=== PATIENT | male | born 1975 | race Caucasian/White ===

== ENCOUNTER 2016-05-07 08:48 | Observation (INO) ==
[2016-05-07 09:44] LABS: MANUAL DIFF NEEDED? NO
[2016-05-07 09:45] LABS: BASO% 0.7 % (0.0-0.8); EOS# 0.34 X1000 (0.0-0.7); EOS% 4.2 % (0.0-10.0); HEMATOCRIT 46.6 % (42.0-52.0); HEMOGLOBIN 15.8 g/dL (14.0-18.0); IMM GRAN# 0.04 X1000 (0.0-0.04); IMM GRAN% 0.5 % (0.0-0.5); LYMPH# 0.96 X1000 (1.2-3.4); LYMPH% 11.8 % (20.5-51.1); MCH 30.8 PG (27-31); MCHC 33.9 g/dL (33-37); MCV 90.8 FL (81-99); MONO# 0.76 X1000 (0.11-0.59); MONO% 9.4 % (1.7-9.3); NEUT% 73.4 % (42.2-75.2); PLT 180 X1000 (130-400); RBC 5.13 XMIL (4.7-6.1)
[2016-05-07] MEDS ORDERED: NS 1,000 ML IV ONE (09:58)
[2016-05-07] MEDS ORDERED: VANCOMYCIN 1 GM/NS 250 ML IV ONE ×2 (09:59→15:20)
[2016-05-07] MEDS ORDERED: MORPHINE IV ONE (09:59)
[2016-05-07] MEDS ORDERED: ZOFRAN IV ONE (09:59)
[2016-05-07 10:11] LABS: AGAP 15; ALBUMIN 3.9 g/dL (3.5-5.0); ALKALINE PHOSPHATASE 167 U/L (32-122); BUN 8 mg/dL (8-22); CHLORIDE 101 mmol/L (98-107); COSMO 286; GOT 23 U/L (10-34); GPT 55 U/L (10-44); POTASSIUM 4.1 mmol/L (3.5-5.1); SODIUM 138 mmol/L (136-145); TCO2 22 mmol/L (25-35); TOTAL PROTEIN 7.4 g/dL (6.3-8.3)
--- NOTE | 2016-05-07 10:18 | PROVIDER DOCUMENTATION ---
HPI-General Adult - General Chief Complaint: Return/Recheck Stated Complaint: RETURN/RECHECK Time Seen by Provider: 05/07/16 09:51 Source: patient Allergies/Adverse Reactions: Patient Allergies Allergy/AdvReac Type Severity Reaction Status Date / Time No Known Allergies Allergy Verified 05/05/16 15:52 Home Medications: Home Medication List Medication Instructions Recorded Confirmed Last Taken Type Clindamycin [Cleocin] 150 mg PO Q6HR #30 capsule 05/05/16 Unknown Rx Doxycycline 100 mg PO BID 05/05/16 05/05/16 Unknown History Sulfamethoxazole/Trimethoprim 1 each PO BID #14 tablet 05/05/16 Unknown Rx [Bactrim Ds Tablet] - History of Present Illness -Gen Adult Nature of Presenting Problems: Pt. is 40 yom that presents with c/o wound to left inner arm. Pt. was seen two days ago and treated with IV antibiotics and sent home with antibiotics to continue. Pt. reports the wound is getting larger and more painful. Pt. states he has been taking all of his medications. Location of Pain/Injury: reports: upper extremity (Left upper arm.). denies: head, face, mouth, neck, chest, hand(s), abdomen, back, pelvis, genitalia, lower extremity, feet, upper body, lower body, generalized Pain Radiation: reports: no radiation Quality of Pain: reports: aching. denies: burning, cramping, dull, fullness, indigestion, pressure, sharp, stabbing, tearing, throbbing, tightness Severity: reports: moderate. denies: mild, severe Onset/Duration: reports: gradual, 4 days ago Timing: reports: still present. denies: improving, gone now, resolved prior to arrival, intermittent, constant, changing over time, getting worse Context/Activities at Onset: reports: none. denies: recent emotional stress, recent physical stress, recent trauma history, possible bad food, cold exposure , out of country travel Modifying Factors: improves with: nothing Associated Symptoms: reports: arm pain. denies: anxiety, back/neck pain, chest pain, constipation, cough, diaphoresis, diarrhea, dizziness, EENT symptoms, fatigue, fever/chills, genitourinary problems, headaches, heartburn, joint pain , loss of appetite, malaise, muscle aches, sinus congestion/drainage, nausea, rash, seizure, shortness of breath, sensory/motor loss, pain with inspiration, swelling/mass in abdomen, syncope, vomiting, weakness, trouble walking Similar Symptoms Previously?: Yes Recently seen or treated by another doctor?: Yes Review of Systems - Adult - REVIEW OF SYSTEMS - ADULT Constitutional: reports: see HPI, fever. denies: chills, fatique, night sweats Eyes: reports: see HPI. denies: discharge, blurred vision, eye pain Ears, Nose, Mouth & Throat: reports: see HPI. denies: ear pain, hearing loss, sinus problem, nose pain, loose teeth, mouth/dental pain, throat pain, throat swelling Cardiovascular: reports: see HPI. denies: chest pain, heart murmur, orthopnea, syncope Respiratory: reports: see HPI. denies: cough, dyspnea on exertion, pleurisy, shortness of breath, wheezing Gastrointestinal: reports: see HPI. denies: abdominal pain, hematemesis, constipation, diarrhea, nausea, vomiting Genitourinary: reports: see HPI. denies: dysuria, discharge, flank pain, hematuria, incontinence, urgency Musculoskeletal: reports: see HPI. denies: bone pain, back pain, joint pain, muscle aches, neck pain Integumentary: reports: see HPI, skin sores/ulcer (6 inch diameter cellulitis to left upper arm with white center that appears to be necrosing.). denies: hair loss, itching, nail changes Neurological: reports: see HPI. denies: dizziness/vertigo, headache/migraines, numbness, seizure, tremors Psychiatric: reports: see HPI. denies: anxiety, depression, emotional problems , insomnia, panic attacks, suicidal thoughts Past History - Adult - PAST MEDICAL HISTORY-ADULT Review of Records: reports: Old Records Reviewed, Nursing Assessment Review, Medications Reviewed, Social history reviewed & non-contributory. Cardiovascular: reports: HTN Endocrine/Immune: reports: Diabetes - PRIOR SURGERIES/PROCEDURES Surgical/Procedure History: reports: none - IMMUNIZATION STATUS Childhood Immunizations: See Nurse Assessment Flu Vaccine: See Nurse Assessment - FAMILY HISTORY Family History: reviewed, not pertinent - SOCIAL HISTORY Smoking: cigarettes, greater than 1 pack/day Provider spent 3-5 mins advising pt. on dangers of tobacco.: Discussed the need to stop smoking. Physical Exam-General - PHYSICAL EXAM-ADULT Initial Vital Signs Reviewed: Yes - CONSTITUTIONAL General Appearance: alert, moderate distress. negative: anxious, lethargic, slow to respond, obtunded, combative - EYES Eyes: PERRL/EOMI, pink conjunctivae. negative: conjuctival exudate, photophobia , scleral icterus, subconjunctival hemorrhage - HEAD, EARS, NOSE, MOUTH & THROAT HENMT: normocephalic/atraumatic, moist mucous membranes. negative: angioedema, frontal tenderness, maxillary tenderness - NECK Neck: non-tender, full range of motion, supple, normal inspection. negative: lymphadenopathy, trachial deviation, thyromegaly - RESPIRATORY Respiratory: lungs clear, normal breath sounds. negative: crackles, rales, rhonchi, stridor, wheezing - CARDIOVASCULAR Cardiovascular: normal peripheral pulses, regular rate, rhythm, no edema, no JVD , no murmur. negative: extra beats, friction rub, irregularly irregular - CHEST (BREASTS) Chest/Breast: deferred - GASTROINTESTINAL (ABDOMEN) Abdominal Exam: normal bowel sounds, non tender, soft. negative: distended, guarding, rigid, rebound, tenderness, hernia, mass - GENITOURINARY Male Genitalia: deferred Rectal Exam: deferred Hemoccult Exam: deferred - LYMPHATIC Lymphatic: no adenopathy. negative: axilla node tender, cervical node tenderness - MUSCULOSKELETAL Back Exam: normal inspection, no CVA tenderness, no vertebral tenderness. negative: ecchymosis, swelling, vertebral tenderness Extremity: normal range of motion, non-tender, normal gait, normal inspection, erythema (Left upper extremity), inflammation (Left upper extremity), tenderness (Left upper extremity). negative: deformity, swelling Peripheral Pulses: radial (R): 2+, radial (L): 2+ - SKIN Integumentary: normal color, normal turgor, warm/dry, erythema (Left upper extremity), swelling (Left upper extremity), tenderness (Left upper extremity). negative: cyanosis, diaphoresis, ecchymosis, jaundice, mottled, pallor, petechiae, purpura, rash - NEUROLOGIC Neurologic: grossly normal, no motor/sensory deficits. negative: aphasia, facial droop, focal weakness, motor weakness, sensory deficit - PSYCHIATRIC Psych/Mental Status: normal mood/affect, normal thought content, normal thought process, oriented x 3. negative: anxious, paranoid, tearful Progress - PLAN OF CARE/RESULTS Progress/Plan/Lab Results: Discussed results and plan of care with patient. Patient agrees with plan and verbalizes understanding. Vital Signs Temp Pulse Resp BP Pulse Ox 05/07/16 09:05 98.8 F 80 18 159/97 100 No Known Allergies Allergy (Verified 05/05/16 15:52) Clindamycin [Cleocin] 150 mg PO Q6HR #30 capsule 05/05/16 Doxycycline 100 mg PO BID 05/05/16 Sulfamethoxazole/Trimethoprim [Bactrim Ds Tablet] 1 each PO BID #14 tablet 05/05 Laboratory 05/07/16 05/07/16 05/07/16 09:25 09:25 09:25 WBC 8.12 RBC 5.13 Hgb 15.8 Hct 46.6 MCV 90.8 MCH 30.8 MCHC 33.9 RDW Std Deviation 13.1 Plt Count 180 MPV 10.0 Immature Gran % (Auto) 0.5 Neut % (Auto) 73.4 Lymph % (Auto) 11.8 L [place] % (Auto) 9.4 H Eos % (Auto) 4.2 Baso % (Auto) 0.7 Immature Gran # (Auto) 0.04 Neut # (Auto) 5.96 Lymph # (Auto) 0.96 L [place] # (Auto) 0.76 H Eos # (Auto) 0.34 Baso # (Auto) 0.06 Sodium 138 Potassium 4.1 Chloride 101 Carbon Dioxide 22 L Anion Gap 15 BUN 8 Creatinine 0.8 Estimated GFR/1.73 m2 > 60 BUN/Creatinine Ratio 10 Glucose 316 H POC Glucose Calculated Osmolality 286 Calcium 9.0 Total Bilirubin 0.30 AST 23 ALT 55 H Alkaline Phosphatase 167 H Total Protein 7.4 Albumin 3.9 Globulin 4.0 Albumin/Globulin Ratio 1.0 Plasma Lactate 1.7 05/07/16 09:14 WBC RBC Hgb Hct MCV MCH MCHC RDW Std Deviation Plt Count MPV Immature Gran % (Auto) Neut % (Auto) Lymph % (Auto) [place] % (Auto) Eos % (Auto) Baso % (Auto) Immature Gran # (Auto) Neut # (Auto) Lymph # (Auto) [place] # (Auto) Eos # (Auto) Baso # (Auto) Sodium Potassium Chloride Carbon Dioxide Anion Gap BUN Creatinine Estimated GFR/1.73 m2 BUN/Creatinine Ratio Glucose POC Glucose 281 H Calculated Osmolality Calcium Total Bilirubin AST ALT Alkaline Phosphatase Total Protein Albumin Globulin Albumin/Globulin Ratio Plasma Lactate Orders Category Date Time Status Saline Loc NOW Care 05/07/16 09:58 Active US NON VASC EXTREMITY LIMITED [US] Stat Exams 05/07/16 09:59 Completed CBC WITH DIFF [HEME] Stat Lab 05/07/16 09:25 Completed COMPREHENSIVE METABOLIC PANEL [CHEM] Stat Lab 05/07/16 09:25 Completed LACTATE, PLASMA [CHEM] Stat Lab 05/07/16 09:25 Completed 0.9% Sodium Chloride Inj [Ns] 1,000 ml Med 05/07/16 09:58 Active IV 125 mls/hr Morphine Med 05/07/16 09:59 Discontinued 4 mg IV NOW ONE Ondansetron [Zofran] Med 05/07/16 09:59 Discontinued 4 mg IV NOW ONE Vancomycin 1 gm/Ns 250 ml Med 05/07/16 09:59 Discontinued IV NOW Laboratory Tests 05/07/16 05/07/16 05/07/16 09:14 09:25 09:25 WBC RBC Hgb Hct MCV MCH MCHC RDW Std Deviation Plt Count MPV Immature Gran % (Auto) Neut % (Auto) Lymph % (Auto) [place] % (Auto) Eos % (Auto) Baso % (Auto) Immature Gran # (Auto) Neut # (Auto) Lymph # (Auto) [place] # (Auto) Eos # (Auto) Baso # (Auto) Sodium 138 Potassium 4.1 Chloride 101 Carbon Dioxide 22 L Anion Gap 15 BUN 8 Creatinine 0.8 Estimated GFR/1.73 m2 > 60 BUN/Creatinine Ratio 10 Glucose 316 H POC Glucose 281 H Calculated Osmolality 286 Calcium 9.0 Total Bilirubin 0.30 AST 23 ALT 55 H Alkaline Phosphatase 167 H Total Protein 7.4 Albumin 3.9 Globulin 4.0 Albumin/Globulin Ratio 1.0 Plasma Lactate 1.7 05/07/16 09:25 WBC 8.12 RBC 5.13 Hgb 15.8 Hct 46.6 MCV 90.8 MCH 30.8 MCHC 33.9 RDW Std Deviation 13.1 Plt Count 180 MPV 10.0 Immature Gran % (Auto) 0.5 Neut % (Auto) 73.4 Lymph % (Auto) 11.8 L [place] % (Auto) 9.4 H Eos % (Auto) 4.2 Baso % (Auto) 0.7 Immature Gran # (Auto) 0.04 Neut # (Auto) 5.96 Lymph # (Auto) 0.96 L [place] # (Auto) 0.76 H Eos # (Auto) 0.34 Baso # (Auto) 0.06 Sodium Potassium Chloride Carbon Dioxide Anion Gap BUN Creatinine Estimated GFR/1.73 m2 BUN/Creatinine Ratio Glucose POC Glucose Calculated Osmolality Calcium Total Bilirubin AST ALT Alkaline Phosphatase Total Protein Albumin Globulin Albumin/Globulin Ratio Plasma Lactate - ULTRASOUND (By Radiology) 1 US Study: Upper Ext US Results: No abscess ([place]) - CONSULTS/PCP/HOSPITALIST Notification #1 *Consult/PCP/Hospitalist*: Dr. Downs Time Discussed: 13:25 Reason/Comments: Admission Consult Disposition: Admit Departure - Departure Time of Disposition Order: 13:25 DIAGNOSIS: Cellulitis Qualifiers: Site of cellulitis: extremity Site of cellulitis of extremity: upper extremity Laterality: left Qualified Code(s): L03.114 - Cellulitis of left upper limb Disposition: ADMITTED INPATIENT 09 Certified Medical Emergency: Emergent Condition: Stable Attestation - Physician/ HEIDI Attestation Patient care was provided by Advanced Practice Provider:: Yes Advanced Practice Provider:: Ana Mora Advanced Practice Provider documentation review:: The Mid-level provider documentation, treatment plan and medical decision making was reviewed by the physician who agrees with all treatment and medical decision making by the MLP.
--- NOTE | 2016-05-07 12:58 | Diag Imaging Result Document ---
PROCEDURE NAME: US NON VASC EXTREMITY LIMITED - 05/07/2016 LEFT ARM EXTREMITY NONVASCULAR ULTRASOUND: INDICATION: Abscess. Possible spine bite. FINDINGS: Sonographic evaluation of the visible abnormality within the left upper extremity shows no cyst or solid mass. No suspicious findings are demonstrated. IMPRESSION: No sonographic abnormality left upper arm.
[2016-05-07] MEDS ORDERED: ZOFRAN IV PRN (13:26)
[2016-05-07] MEDS ORDERED: TYLENOL PO PRN (13:26)
[2016-05-07] MEDS ORDERED: VANCOMYCIN IV PER PHARMACY MISC SCH (13:30)
[2016-05-07] MEDS: ROCEPHIN 1 GM/NS 50 ML IV SCH (13:55)
[2016-05-07] MEDS ORDERED: MORPHINE IV PRN (19:11)
[2016-05-07] MEDS ORDERED: HUMALOG DOSE (PARKWAY) ONE (19:36)
[2016-05-07] MEDS: NORCO-10 PO PRN (19:56)
[2016-05-07] MEDS: HUMALOG SUBQ SCH (21:28)
[2016-05-08] MEDS: VANCOMYCIN 2,000 MG in NS 500 ML IV SCH ×2 (02:00→14:39)
[2016-05-08] MEDS ORDERED: VANCOMYCIN 2,000 MG in NS 500 ML IV SCH (02:00)
[2016-05-08] MEDS: NORCO-10 PO PRN ×4 (04:15→20:05)
[2016-05-08] MEDS ORDERED: HUMALOG DOSE (PARKWAY) ONE ×2 (06:09→19:59)
[2016-05-08] MEDS: HUMALOG SUBQ SCH ×4 (07:00→20:05)
--- NOTE | 2016-05-08 10:06 | HISTORY AND PHYSICAL ---
CHIEF COMPLAINT: Cellulitis history. HISTORY OF PRESENT ILLNESS: Patient is a 40-year-old male who notes about a week ago, he started having redness and swelling under his left arm near the axilla. The swelling continued to worsen. So, he presented to his primary care physician and was placed on antibiotics. Unfortunately, he continued to worsen. He presented to the emergency department and was given IV vancomycin x1 and his antibiotics were changed. This, however, did not clear up his arm and he continued to worsen. Now, he is having increased redness that is outside of the marked area from 2 days ago, increased pain and swelling. Denies any pus draining. Denies any fevers, chills. ALLERGIES: No known drug allergies. MEDICATIONS: He is on no chronic active medications; however, he was just recently on Bactrim and doxycycline. REVIEW OF SYSTEMS: As noted above, pain, swelling and redness to his left upper arm near his axilla that has continued to worsen. Denies any fevers, chills, cough, congestion. Denies any upper respiratory type symptoms. Denies any chest pain, palpitations. Denies dysuria, urinary frequency. Denies hesitancy, constipation, melena, or hematochezia. PAST MEDICAL HISTORY: Significant for hypertension, diabetes. FAMILY HISTORY: Noncontributory. SOCIAL HISTORY: He is . Lives at home. Does not smoke or drink. He is employed. PHYSICAL EXAMINATION: VITAL SIGNS: Reviewed. Temperature, 98.8, pulse 80, respiratory 18, BP 169/97, sat 100% on room air. GENERAL: Patient is well developed, well nourished. Currently in no real respiratory distress. He is awake, alert. NECK: Supple. CV: Regular rate. CHEST: Relatively clear. ABDOMEN: Soft. EXTREMITIES: Moves all extremities. NEUROLOGIC: No focal changes. SKIN: He has a 3-4 inch diameter erythematous area on his left upper extremity close to his axilla. No plus. No drainage. Warm to the touch. No other rashes noted. DIAGNOSTIC DATA: CBC and CMP essentially normal. ASSESSMENT: 1. Cellulitis, left upper extremity. Failed outpatient management. 2. Diabetes. 3. Hypertension. PLAN: We will admit patient to the hospital. IV vancomycin. We will use sliding scale insulin. Control his blood sugar. Further orders as needed. cc: Demetrio Downs MD
[2016-05-08] MEDS ORDERED: NS 500 ML ONE (12:49)
[2016-05-08] MEDS: ROCEPHIN 1 GM/NS 50 ML IV SCH (13:30)
--- NOTE | 2016-05-08 14:18 | PROGRESS NOTE ---
DATE: 05/08/2016 SUBJECTIVE: The patient notes that his left upper extremity still hurts, still has some erythema and redness but, overall, appears to be improving. It is less red than it was yesterday. PHYSICAL EXAMINATION: Temperature 98.4 degrees, pulse 99, respiratory 17. BP 175/94. General: The patient is well developed, well nourished, currently in no real respiratory distress. He is awake, alert. Neck supple. CV: Regular rate. Chest: Relatively clear. Abdomen soft. Extremities: Moves all extremities. Neurologic: No focal changes. Skin: He is noted to have less erythema, less warmth, less induration of the area on his left upper extremity. soap tender to touch. ASSESSMENT: 1. Cellulitis. Failed outpatient management. 2. Hypertension. 3. Diabetes. PLAN: We will continue his home medications. Continue his antibiotics. Continue to follow his blood pressure. Hopefully home in the next day or 2. cc: Demetrio Downs MD
[2016-05-09] MEDS: VANCOMYCIN 2,000 MG in NS 500 ML IV SCH (01:25)
[2016-05-09] MEDS: NORCO-10 PO PRN ×3 (01:28→13:28)
[2016-05-09] MEDS: HUMALOG SUBQ SCH ×2 (06:39→11:41)
[2016-05-09 12:11] VITALS: BP 148/96
[2016-05-09] MEDS: ROCEPHIN 1 GM/NS 50 ML IV SCH (12:45)
--- NOTE | 2016-05-09 16:36 | DISCHARGE SUMMARY ---
ADMISSION DATE: 05/07/2016 DISCHARGE DATE: 05/09/2016 DISCHARGE DIAGNOSES: 1. Cellulitis left upper extremity, improving. 2. Pain control, improving. 3. Diabetes. 4. Hypertension. CONSULTATIONS: None. PROCEDURES: None. HOSPITAL COURSE: The patient is a 40-year-old male who was admitted as noted on the HPI. Treated in usual fashion. Placed on IV vancomycin which he tolerated very well. On discharge, he is awake, alert. He is in no distress. He is feeling better. Notes he is still having some pain and erythema of his left upper extremity but it is tremendously better than it was. DISPOSITION: The patient will be discharged home. Thirty minutes were spent in discharge planning and instructions. He will continue clindamycin at home. He will follow up outpatient with physician of choice. He states he is going to call Dr. Sheehan in [place]. Discussed with him that should Dr. Sheehan not be able to see him that we would get him in in the office. If his swelling or erythema comes back then he certainly will need to have IV vancomycin at home. Otherwise, will send home on clindamycin for up to 14 days. Discussed with the patient that he needs a probiotic while he takes antibiotics. cc: Demetrio Downs MD
--- NOTE | 2016-05-09 17:12 | DISCHARGE SUMMARY ---
ADMISSION DATE: 05/07/2016 DISCHARGE DATE: 05/09/2016 DIAGNOSES: 1. Cellulitis, left upper extremity. Failed outpatient management. 2. Hypertension. 3. Diabetes mellitus. DIAGNOSTICS: 05/07/2016, extremity ultrasound, left revealed no sonographic abnormality left upper arm. HOSPITAL COURSE: Mr. Celaya presented to the emergency room complaining of swelling to his left arm near the axilla that had been present for about a week that did not respond to oral antibiotics. He was given IV vancomycin with a change in antibiotics on the . His arm continued to worsen, so he returned on the . At this time, he was admitted for IV vancomycin. We did continue his home medications. He was placed on sliding scale insulin per pattern blood glucose. He did respond to treatment, improving within the first 24 hours. DISCHARGE ASSESSMENT: Cardiovascular: Regular rate and rhythm. S1, S2 appreciated. Pulmonary: Breath sounds are clear. No increased work of breathing noted. Gastrointestinal: Abdomen is soft, nontender, nondistended with bowel sounds in all 4 quadrants. Neurologic: Alert and orient x3. Cranial nerves 2-12 grossly intact. Skin: Warm and dry, with some erythema to his left upper arm, but much less than when he was admitted. Pulses are palpable x4 and calves are nontender. DISCHARGE MEDICATION: Probiotics, one daily. [place] 10 q.4 hours p.r.n. Clindamycin 300 mg p.o. q.8 hours. FOLLOWUP: [facility] was [facility] as well as the physician referral line. He needs to be evaluated in 1-2 weeks. Sooner if symptoms recur, temperature greater than 100.5, any swelling to his arm, nausea, vomiting or any questions or concerns that he may have, he needs to be seen sooner or go to the emergency room. DISCHARGE VITAL SIGNS: Blood pressure 148/96, with a heart rate of 73, respirations 18, temperature 97.9 degrees oral with room air saturations 100%. He is being discharged home in stable condition with family members. TIME SPENT: This is a greater than 30 minute discharge. Dictated by SARAH BETH Medina for Demetrio Downs MD cc: SARAH BETH Medina MD
== END 2016-05-09 13:50 | disposition home or self-care (01) ==
LOC: P.ED 08:48 → P.MEDSURG 13:25
PROVIDERS: ATTEND Family Medicine